=== PATIENT | male | born 1980 | race Caucasian/White ===

== ENCOUNTER 2018-07-04 14:11 | Emergency (ER) | payer BC ==
[2018-07-04] MEDS: ACETAMINOPHEN 325 MG TAB PO (16:30)
[2018-07-04] MEDS ORDERED: IBUPROFEN 600 MG TAB PO (16:30)
[2018-07-04] MEDS: LORAZEPAM 1 MG TAB PO (16:33)
== END 2018-07-04 18:57 | disposition home or self-care (01) ==
LOC: FTE 14:11
DX: S82.62XA Displaced fracture of lateral malleolus of left fibula, initial encounter for closed fracture (principal); S13.4XXA Sprain of ligaments of cervical spine, initial encounter; V43.52XA Car driver injured in collision with other type car in traffic accident, initial encounter
CPT/HCPCS: 29515; 71046; 73610; 99284-25